=== PATIENT | male | born 1945 | race Caucasian/White ===

== ENCOUNTER 2021-06-14 12:51 | Inpatient (IN) ==
[2021-06-14 14:52] LABS: Basophils % 0.3 % (0.0-0.8); Eosinophils # 0.1 10*3/uL (0.0-0.87); Eosinophils % 1.2 % (0.00-10.9); Hematocrit 48.2 VOL% (42.0-52.0); Hemoglobin 15.3 GM/DL (14.0-18.0); Immature Granulocytes % 0.5 %; Immature Granulocytes Absolute 0.05 #; Lymphocytes # 1.1 10*3/uL (1.4-4.0); Lymphocytes % 10.8 % (21.2-54.2); Mean Corpuscular HGB Conc 31.7 GM/DL (32-36); Mean Corpuscular Volume 90.4 FL (87-102); Mean Platelet Volume 11.4 FL (9.6-12.0); Monocytes % 12.2 % (1.7-12.7); Platelet Count 140 T/CUMM (130-400); Red Blood Count 5.33 MC/CUMM (3.8-5.5); Red Cell Distribution Width 13.6 % (9.3-17.3); White Blood Count 10.6 T/CUMM (4-12)
[2021-06-14 15:08] LABS: Albumin 3.6 G/DL (3.4-5.0); Bilirubin,Total 0.4 MG/DL (0.20-1.00); Calcium 8.2 MG/DL (8.5-10.1); Osmolality,Calculated 284.4 MOS/KG (273-304); Potassium 4.7 MMOL/L (3.5-5.1); Total Protein 6.9 G/DL (6.4-8.2)
[2021-06-14 15:27] LABS: Anisocytosis 1+; Macrocytosis Slight; Platelet Estimate Adequate
[2021-06-14] MEDS ORDERED: ALBUTEROL/IPRATROPIUM 3 ML NEB RESP TX STA (15:51)
[2021-06-14] MEDS ORDERED: ONDANSETRON 4 MG/2 ML VIAL IV PRN (17:48)
[2021-06-14] MEDS ORDERED: ACETAMINOPHEN 325 MG TABLET PO PRN (17:48)
[2021-06-14] MEDS ORDERED: DEXTROSE 50% 25 GM/50 ML VIAL IV PRN (17:48)
[2021-06-14] MEDS ORDERED: GLUCAGON 1 MG VIAL IM PRN (17:48)
[2021-06-14] MEDS: methylPREDNISolone SOD SUC 40 MG/1 ML VIAL IV SCH (18:19)
[2021-06-14] MEDS: SODIUM CHLORIDE 0.45% 1,000 ML IV SCH (18:56)
[2021-06-14] MEDS: ENOXAPARIN 30 MG/0.3 ML SYRINGE SUBCUT SCH (18:56)
[2021-06-14] MEDS: ALBUTEROL/IPRATROPIUM 3 ML NEB RESP TX SCH (20:19)
[2021-06-14] MEDS: DOXYCYCLINE HYCLATE 100 MG CAPSULE PO SCH (21:37)
[2021-06-15] MEDS: ALBUTEROL/IPRATROPIUM 3 ML NEB RESP TX SCH ×4 (00:25→19:16)
[2021-06-15 05:00] LABS: Basophils % 0.1 % (0.0-0.8); Hemoglobin 14.3 GM/DL (14.0-18.0); Immature Granulocytes % 0.6 %; Immature Granulocytes Absolute 0.05 #; Lymphocytes # 0.5 10*3/uL (1.4-4.0); Lymphocytes % 6.3 % (21.2-54.2); Mean Corpuscular HGB Conc 31.1 GM/DL (32-36); Mean Corpuscular Volume 92.7 FL (87-102); Platelet Count 123 T/CUMM (130-400); Red Blood Count 4.96 MC/CUMM (3.8-5.5); Red Cell Distribution Width 13.5 % (9.3-17.3); White Blood Count 7.8 T/CUMM (4-12)
[2021-06-15 05:29] LABS: Lymphocytes 8 % (20-55); Platelet Estimate Normal; Segmented Neutrophils 90 % (50-85); Total Cells Counted 100
[2021-06-15 05:39] LABS: Calcium 8.4 MG/DL (8.5-10.1); Potassium 4.6 MMOL/L (3.5-5.1); Thyroid Stimulating Hormone 0.572 uIU/ml (0.358-3.74)
[2021-06-15] MEDS: methylPREDNISolone SOD SUC 40 MG/1 ML VIAL IV SCH ×2 (06:07→17:30)
[2021-06-15] MEDS: SODIUM CHLORIDE 0.45% 1,000 ML IV SCH (07:38)
[2021-06-15] MEDS: DOXYCYCLINE HYCLATE 100 MG CAPSULE PO SCH ×2 (08:00→20:27)
[2021-06-15] MEDS: PANTOPRAZOLE 40 MG TABLET PO SCH (14:34)
[2021-06-15] MEDS: ENOXAPARIN 30 MG/0.3 ML SYRINGE SUBCUT SCH (17:30)
[2021-06-16] MEDS: ALBUTEROL/IPRATROPIUM 3 ML NEB RESP TX SCH ×4 (00:40→20:15)
[2021-06-16 05:14] LABS: Basophils % 0.3 % (0.0-0.8); Eosinophils # 0.1 10*3/uL (0.0-0.87); Hematocrit 46.2 VOL% (42.0-52.0); Hemoglobin 14.4 GM/DL (14.0-18.0); Immature Granulocytes % 0.7 %; Immature Granulocytes Absolute 0.07 #; Lymphocytes # 1.5 10*3/uL (1.4-4.0); Lymphocytes % 15.9 % (21.2-54.2); Mean Corpuscular HGB Conc 31.2 GM/DL (32-36); Mean Corpuscular Volume 93.1 FL (87-102); Mean Platelet Volume 11.8 FL (9.6-12.0); Monocytes % 11.2 % (1.7-12.7); Neutrophils % 70.9 % (38.7-73.9); Platelet Count 144 T/CUMM (130-400); Red Blood Count 4.96 MC/CUMM (3.8-5.5); Red Cell Distribution Width 13.8 % (9.3-17.3); White Blood Count 9.5 T/CUMM (4-12)
[2021-06-16 05:46] LABS: Calcium 8.2 MG/DL (8.5-10.1); Osmolality,Calculated 284.3 MOS/KG (273-304); Potassium 4.5 MMOL/L (3.5-5.1)
[2021-06-16] MEDS: methylPREDNISolone SOD SUC 40 MG/1 ML VIAL IV SCH ×2 (06:16→18:25)
[2021-06-16] MEDS: PANTOPRAZOLE 40 MG TABLET PO SCH (09:33)
[2021-06-16] MEDS: DOXYCYCLINE HYCLATE 100 MG CAPSULE PO SCH ×2 (09:33→21:35)
[2021-06-16] MEDS: amLODIPine 2.5 MG TABLET PO SCH (12:51)
[2021-06-16] MEDS: CLOPIDOGREL 75 MG TABLET PO SCH (12:52)
[2021-06-16] MEDS: LOSARTAN 50 MG TABLET PO SCH (12:52)
[2021-06-16] MEDS: ENOXAPARIN 30 MG/0.3 ML SYRINGE SUBCUT SCH (18:24)
[2021-06-16] MEDS: ATORVASTATIN 80 MG TABLET PO SCH (21:35)
[2021-06-17] MEDS: ALBUTEROL/IPRATROPIUM 3 ML NEB RESP TX SCH ×4 (00:36→19:48)
[2021-06-17] MEDS: methylPREDNISolone SOD SUC 40 MG/1 ML VIAL IV SCH (06:15)
[2021-06-17 06:36] LABS: Basophils % 0.2 % (0.0-0.8); Hematocrit 49.8 VOL% (42.0-52.0); Hemoglobin 15.9 GM/DL (14.0-18.0); Immature Granulocytes Absolute 0.15 #; Lymphocytes # 1.1 10*3/uL (1.4-4.0); Lymphocytes % 6.9 % (21.2-54.2); Mean Corpuscular HGB Conc 31.9 GM/DL (32-36); Mean Corpuscular Volume 93.3 FL (87-102); Mean Platelet Volume 11.8 FL (9.6-12.0); Monocytes % 5.5 % (1.7-12.7); Neutrophils % 86.4 % (38.7-73.9); Platelet Count 165 T/CUMM (130-400); Red Blood Count 5.34 MC/CUMM (3.8-5.5); Red Cell Distribution Width 13.8 % (9.3-17.3); White Blood Count 15.2 T/CUMM (4-12)
[2021-06-17 06:49] LABS: Calcium 8.7 MG/DL (8.5-10.1); Osmolality,Calculated 281.7 MOS/KG (273-304); Potassium 5.2 MMOL/L (3.5-5.1)
[2021-06-17] MEDS: LOSARTAN 50 MG TABLET PO SCH (09:16)
[2021-06-17] MEDS: DOXYCYCLINE HYCLATE 100 MG CAPSULE PO SCH ×2 (09:16→20:41)
[2021-06-17] MEDS: PANTOPRAZOLE 40 MG TABLET PO SCH (09:16)
[2021-06-17] MEDS: CLOPIDOGREL 75 MG TABLET PO SCH (09:16)
[2021-06-17] MEDS: amLODIPine 2.5 MG TABLET PO SCH (09:16)
[2021-06-17] MEDS: MIDODRINE 2.5 MG TABLET PO SCH ×2 (13:00→20:42)
[2021-06-17] MEDS: ENOXAPARIN 30 MG/0.3 ML SYRINGE SUBCUT SCH (18:06)
[2021-06-17] MEDS: amLODIPine 10 MG TABLET PO SCH (20:41)
[2021-06-17] MEDS: ATORVASTATIN 80 MG TABLET PO SCH (20:41)
[2021-06-18] MEDS: ALBUTEROL/IPRATROPIUM 3 ML NEB RESP TX SCH ×4 (00:59→21:06)
[2021-06-18] MEDS: MIDODRINE 2.5 MG TABLET PO SCH ×2 (09:03→21:31)
[2021-06-18] MEDS: CLOPIDOGREL 75 MG TABLET PO SCH (09:03)
[2021-06-18] MEDS: PANTOPRAZOLE 40 MG TABLET PO SCH (09:03)
[2021-06-18] MEDS: LOSARTAN 50 MG TABLET PO SCH (09:03)
[2021-06-18] MEDS: DOXYCYCLINE HYCLATE 100 MG CAPSULE PO SCH ×2 (09:03→21:31)
[2021-06-18] MEDS: ENOXAPARIN 30 MG/0.3 ML SYRINGE SUBCUT SCH (17:30)
[2021-06-18] MEDS: amLODIPine 10 MG TABLET PO SCH (21:31)
[2021-06-18] MEDS: ATORVASTATIN 80 MG TABLET PO SCH (21:31)
[2021-06-19] MEDS: ALBUTEROL/IPRATROPIUM 3 ML NEB RESP TX SCH ×4 (01:28→20:13)
[2021-06-19 05:21] LABS: Basophils # 0.1 10*3/uL (0.0-0.2); Basophils % 0.9 % (0.0-0.8); Eosinophils # 0.2 10*3/uL (0.0-0.87); Eosinophils % 1.6 % (0.00-10.9); Hematocrit 46.7 VOL% (42.0-52.0); Hemoglobin 14.6 GM/DL (14.0-18.0); Immature Granulocytes % 3.6 %; Immature Granulocytes Absolute 0.35 #; Lymphocytes % 20.4 % (21.2-54.2); Mean Corpuscular HGB Conc 31.3 GM/DL (32-36); Mean Platelet Volume 11.8 FL (9.6-12.0); Monocytes % 14.4 % (1.7-12.7); Neutrophils % 59.1 % (38.7-73.9); Platelet Count 154 T/CUMM (130-400); Red Blood Count 4.97 MC/CUMM (3.8-5.5); Red Cell Distribution Width 14.1 % (9.3-17.3); White Blood Count 9.7 T/CUMM (4-12)
[2021-06-19 05:34] LABS: Calcium 8.9 MG/DL (8.5-10.1); Osmolality,Calculated 295.7 MOS/KG (273-304); Potassium 5.2 MMOL/L (3.5-5.1)
[2021-06-19 07:21] LABS: Band Neutrophils 1 % (0-10); Eosinophils 1 % (0-10); Lymphocytes 15 % (20-55); Metamyelocytes 1 %; Microcytosis 1+; Ovalocytes Slight; Segmented Neutrophils 69 % (50-85); Total Cells Counted 100
[2021-06-19 07:22] LABS: Hypochromasia Slight; Platelet Estimate Adequate
[2021-06-19] MEDS ORDERED: LOSARTAN 50 MG TABLET PO SCH (09:00)
[2021-06-19] MEDS: DOXYCYCLINE HYCLATE 100 MG CAPSULE PO SCH ×2 (09:36→20:47)
[2021-06-19] MEDS: MIDODRINE 2.5 MG TABLET PO SCH ×2 (09:36→20:47)
[2021-06-19] MEDS: CLOPIDOGREL 75 MG TABLET PO SCH (09:36)
[2021-06-19] MEDS: PANTOPRAZOLE 40 MG TABLET PO SCH (09:36)
[2021-06-19] MEDS: ENOXAPARIN 30 MG/0.3 ML SYRINGE SUBCUT SCH (18:01)
[2021-06-19] MEDS: amLODIPine 10 MG TABLET PO SCH (20:47)
[2021-06-19] MEDS: ATORVASTATIN 80 MG TABLET PO SCH (20:47)
[2021-06-20] MEDS: ALBUTEROL/IPRATROPIUM 3 ML NEB RESP TX SCH ×2 (00:53→07:02)
[2021-06-20 04:17] LABS: Basophils # 0.1 10*3/uL (0.0-0.2); Basophils % 0.4 % (0.0-0.8); Eosinophils # 0.4 10*3/uL (0.0-0.87); Eosinophils % 3.5 % (0.00-10.9); Hematocrit 46.4 VOL% (42.0-52.0); Hemoglobin 14.7 GM/DL (14.0-18.0); Immature Granulocytes % 3.9 %; Immature Granulocytes Absolute 0.46 #; Lymphocytes # 2.1 10*3/uL (1.4-4.0); Lymphocytes % 17.6 % (21.2-54.2); Mean Corpuscular HGB Conc 31.7 GM/DL (32-36); Mean Platelet Volume 11.5 FL (9.6-12.0); Monocytes % 12.6 % (1.7-12.7); Platelet Count 168 T/CUMM (130-400); Red Blood Count 4.99 MC/CUMM (3.8-5.5); White Blood Count 11.9 T/CUMM (4-12)
[2021-06-20 04:49] LABS: Calcium 8.9 MG/DL (8.5-10.1); Eosinophils 3 % (0-10); Lymphocytes 14 % (20-55); Osmolality,Calculated 288.1 MOS/KG (273-304); Platelet Estimate Adequate; Segmented Neutrophils 74 % (50-85); Total Cells Counted 100
[2021-06-20 04:50] LABS: Hypochromasia Slight; Microcytosis 1+
[2021-06-20] MEDS: PANTOPRAZOLE 40 MG TABLET PO SCH (08:36)
[2021-06-20] MEDS: MIDODRINE 2.5 MG TABLET PO SCH (08:36)
[2021-06-20] MEDS: DOXYCYCLINE HYCLATE 100 MG CAPSULE PO SCH (08:36)
[2021-06-20] MEDS: CLOPIDOGREL 75 MG TABLET PO SCH (08:36)
[2021-06-20] MEDS ORDERED: LOSARTAN 25 MG TABLET PO SCH (09:00)
[2021-06-20 11:01] VITALS: BP 110/62
[2021-06-20] MEDS ORDERED: amLODIPine 5 MG TABLET PO SCH (21:00)
== END 2021-06-20 12:00 | disposition home or self-care (01) | DRG 312 ==
LOC: N.ED 12:51 → N.EDINP 12:51 → N.4E 19:22 → SUATTDRO 06-16 17:43
PROVIDERS: ADMIT Internal Medicine; ATTEND Hospitalist